=== PATIENT | male | born 1965 | race Caucasian/White ===

== ENCOUNTER → 2025-02-25 10:54 | Outpatient (REF) | payer OTHER, SELFPAY | LOC: REG 10:54 | PROVIDERS: ATTENDING PHYSICIAN Physician Assistant Surgical; FAMILY PHYSICIAN Internal Medicine | DX: M54.50 Low back pain, unspecified (principal); M47.816 Spondylosis without myelopathy or radiculopathy, lumbar region | CPT/HCPCS: 70030 ==